=== PATIENT | male | born 1950 | race Caucasian/White ===

== ENCOUNTER → 2018-03-01 06:25 | Outpatient (CLI) | payer OTHER ==
[~2018-03-01 06:25] MED LIST: COUMADIN3 MG; COUMADIN4 MG; FOLIC ACID1 MG PO; TRICOR145 MG PO
== END | disposition home or self-care (01) ==
LOC: LAB 06:25
DX: E56.1 Deficiency of vitamin K (principal); E55.9 Vitamin D deficiency, unspecified; M85.88 Other specified disorders of bone density and structure, other site

== ENCOUNTER 2018-03-11 12:55 | Outpatient (CLI) | payer OTHER | END 2018-03-11 13:00 | disposition home or self-care (01) | LOC: NUCLEAR 12:55 | DX: M81.0 Age-related osteoporosis without current pathological fracture (principal) ==

== ENCOUNTER 2018-09-21 09:47 | Outpatient (CLI) | payer OTHER | END 2018-09-21 09:54 | disposition home or self-care (01) | LOC: RAD 501 09:47 | DX: N20.0 Calculus of kidney (principal) ==

== ENCOUNTER → 2018-09-28 | Outpatient (CLI) | payer OTHER | END | disposition home or self-care (01) | LOC: RAD 501 09:04 | DX: M25.551 Pain in right hip (principal) ==

== ENCOUNTER 2021-08-17 08:29 | Outpatient (CLI) | payer OTHER | END 2021-08-17 08:34 | disposition home or self-care (01) | LOC: LAB 08:29 | PROVIDERS: ATTEND Internal Medicine | DX: E78.89 Other lipoprotein metabolism disorders (principal); R74.01 Elevation of levels of liver transaminase levels; N39.0 Urinary tract infection, site not specified; Z12.11 Encounter for screening for malignant neoplasm of colon ==

== ENCOUNTER 2022-06-23 08:23 | Outpatient (CLI) | payer OTHER | END 2022-06-23 08:27 | disposition home or self-care (01) | LOC: RAD 08:23 | DX: S39.91XA Unspecified injury of abdomen, initial encounter (principal) ==